=== PATIENT | male | born 1970 | race American Indian/Alaskan Native ===

== ENCOUNTER 2020-03-31 07:20 | Emergency (ER) | payer OTHER ==
[2020-03-31] MEDS ORDERED: Cyclobenzaprine 10 MG Tab PO ONE (07:31)
--- NOTE | 2020-03-31 07:47 | EDM.PDOC ---
"ED HPI GENERAL MEDICAL PROBLEM - General Chief Complaint: Back Pain or Injury Stated Complaint: BACK SPASMS, STIFF Time Seen by Provider: 03/31/20 07:39 Source of Information: Reports: Patient, RN, RN Notes Reviewed History Limitations: Reports: No Limitations - History of Present Illness INITIAL COMMENTS - FREE TEXT/NARRATIVE: Patient presents to the ED via personal vehicle with complaints of acute lower back pain. The patient states the pain is localized to the lower, midline back and does not radiate. He describes the pain as spasming in nature; it limits his ability to change positions, lay down, or stand up straight. He denies recent or past injury to the area or recent strenuous activity. The patient reports he has experienced similar pain about five years ago which spontaneously improved. He has not taken any medications for this pain but applied a lower back brace he had at home. He denies loss of sensory function, urinary incontinence, inability to fully void, stool incontinence, or difficulty passing stool. He denies tobacco, alcohol, or recreational drug use. Lower Back Pain Score (Numeric/FACES): 9 - Related Data Allergies Allergy/AdvReac Type Severity Reaction Status Date / Time No Known Allergies Allergy Verified 03/31/20 07:25 Home Meds: Home Meds . [No Known Home Meds] 05/01/14 [History] Past Medical History - Past Health History Medical/Surgical History: Denies Medical/Surgical History Musculoskeletal History: Reports: Back Pain, Chronic Social & Family History - Tobacco Use Tobacco Use Status *Q: Never Tobacco User Second Hand Smoke Exposure: No - Caffeine Use Caffeine Use: Reports: Coffee - Recreational Drug Use Recreational Drug Use: No ED ROS GENERAL - Review of Systems Review Of Systems: Comprehensive ROS is negative, except as noted in HPI. ED EXAM,LOWER BACK PAIN/INJURY - Physical Exam Exam: See Below Exam Limited By: No Limitations General Appearance: Alert, WD/WN, Mild Distress GI/Abdominal: Normal Bowel Sounds, Soft, Non-Tender, No Distention, No Mass, Pelvis Stable (Male) Exam: Deferred Rectal (Males) Exam: Deferred Back Exam: Decreased Range of Motion, Muscle Spasm (To lower back), Vertebral Tenderness (To lower back). No: CVA Tenderness (L), CVA Tenderness (R), Paraspinal Tenderness Extremities: Normal Inspection, Normal Range of Motion, Non-Tender, No Pedal Edema, Normal Capillary Refill. No: Leg Pain, Mottled, Pallor Neurological: Alert, Normal Mood/Affect, Normal Dorsiflexion, CN II-XII Intact, Normal Plantar Flexion, Normal Reflexes, Oriented x 3. No: Normal Gait (Walking with a hunched gait, due to inability to stand fully erect ) Psychiatric: Normal Affect, Normal Mood Skin Exam: Warm, Dry, Normal Color. No: Ecchymosis, Erythema, Mottled, Pallor, Petechiae Course - Vital Signs Last Recorded V/S: Last Vital Signs Temp 99.1 F 03/31/20 07:27 Pulse 84 03/31/20 07:27 Resp 16 03/31/20 07:27 BP 124/88 03/31/20 07:27 Pulse Ox 96 03/31/20 07:27 - Orders/Labs/Meds Meds: Medications Discontinued Medications Generic Name Dose Route Start Last Admin Trade Name Freq PRN Reason Stop Dose Admin Cyclobenzaprine HCl 10 mg 03/31/20 07:31 03/31/20 07:39 Flexeril PO 03/31/20 07:32 10 mg ONETIME ONE Administration Ketorolac Tromethamine 30 mg 03/31/20 08:25 03/31/20 08:31 Toradol IM 03/31/20 08:26 30 mg ONETIME ONE Administration - Radiology Interpretation Free Text/Narrative:: [facility] Final Radiology Report Call: [phone] assistance Online chat: [email or web address] Name: WEN PULLIAM II Age: 49Years M Date: 03/31/2020 SSN: -- : [id number] Study: CR LUMBAR SPINE 2 OR 3V Requesting Physician: Zuleyma Alva Images: 2 Addl Studies: Provided Clinical History: Acute back spasm Contrast: Contrast Medium: Contrast Amount: Contrast Method: Page 1 of 2 PROCEDURE INFORMATION: Exam: XR Lumbosacral Spine, 2 or 3 Views Exam date and time: 03/31/2020 7:47 AM Age: 49 years old Clinical indication: Other: Acute back spasm TECHNIQUE: Imaging protocol: XR of the lumbosacral spine, 2 or 3 views. COMPARISON: No relevant prior studies available. FINDINGS: Bones/joints: Mild right sided L4-L5 degenerative disc narrowing. Clustered calcifications right lateral to the L3 vertebral body in aggregate measuring 2.5 x 1.5 cm, individual calcifications measuring as large as 3.5 mm. These are not identified on the lateral image suggesting these are far anterior, or even external to the patient. Soft tissues: Unremarkable. Gastrointestinal tract: Borderline prominence of upper abdominal small bowel loops with nondifferential air-fluid levels. IMPRESSION: 1. Mild degenerative changes as above. 2. No acute lumbar spinal bony abnormality identified. 3. Possible mild enteritis. Clinical correlation is recommended. 4. Possible gallstones. Clinical correlation with the patient's specific symptomatology is recommended. Nonemergent gallbladder may be helpful if indicated. Thank you for allowing us to participate in the care of your patient. WEN PULLIAM II | Final Radiology Report CONFIDENTIALITY STATEMENT This report is intended only for use by the referring physician, and only in accordance with law. If you received this in error, call [phone]. Page 2 of 2 Dictated and Authenticated by: David Davalos - Re-Assessments/Exams Free Text/Narrative Re-Assessment/Exam: 03/31/20 Patient verbalized improvement in acute pain with administration of ketorolac and Flexeril. Xray of the lumbar reveals mild degenerative disk narrowing in L4-L5. Mild enteritis and gallstones noted on x-ray discussed with patient - he again confirms no changes to his bowel pattern and no abdominal pain. Patient scheduled with PT tomorrow at 11am. Discussed supportive cares for acute spasm with patient. He verbalized understanding and agreement with the plan of care. Departure - Departure Time of Disposition: 08:57 Disposition: Home, Self-Care 01 Condition: Good Clinical Impression: Muscle spasm of back Acute low back pain Qualifiers: Back pain laterality: midline Sciatica presence: without sciatica Qualified Code(s): M54.5 - Low back pain - Discharge Information *PRESCRIPTION DRUG MONITORING PROGRAM REVIEWED*: Not Applicable *COPY OF PRESCRIPTION DRUG MONITORING REPORT IN PATIENT JOSSIE: Not Applicable Forms: ED Department Discharge Additional Instructions: Rx: Ketorolac Rx: Cyclobenzaprine 1.) Scheduled with PT tomorrow (04/01/2020) at 11am. 2.) Apply moist heat to lower back for 20 minutes every hour as pain persists. You may alternate ice to the lower back for 20 minutes every hours as pain persists, as well. 3.) Drink plenty of fluids to stay hydrated. 4.) In addition to the prescribed medications you may take acetaminophen (Tylenol) 650mg every six hours for pain. DO NOT take any ibuprofen, aspirin, or additional NSAID medication when you are taking Ketorolac. Sepsis Event Note (ED) - Evaluation Sepsis Screening Result: No Definite Risk - Focused Exam Vital Signs: Vital Signs Temp Pulse Resp BP Pulse Ox 03/31/20 07:27 99.1 F 84 16 124/88 96"
--- NOTE | 2020-03-31 08:18 | CR ---
PROCEDURE INFORMATION: Exam: XR Lumbosacral Spine, 2 or 3 Views Exam date and time: 03/31/2020 7:47 AM Age: 49 years old Clinical indication: Other: Acute back spasm TECHNIQUE: Imaging protocol: XR of the lumbosacral spine, 2 or 3 views. COMPARISON: No relevant prior studies available. FINDINGS: Bones/joints: Mild right sided L4-L5 degenerative disc narrowing. Clustered calcifications right lateral to the L3 vertebral body in aggregate measuring 2.5 x 1.5 cm, individual calcifications measuring as large as 3.5 mm. These are not identified on the lateral image suggesting these are far anterior, or even external to the patient. Soft tissues: Unremarkable. Gastrointestinal tract: Borderline prominence of upper abdominal small bowel loops with nondifferential air-fluid levels. IMPRESSION: 1. Mild degenerative changes as above. 2. No acute lumbar spinal bony abnormality identified. 3. Possible mild enteritis. Clinical correlation is recommended. 4. Possible gallstones. Clinical correlation with the patient's specific symptomatology is recommended. Nonemergent gallbladder may be helpful if indicated.
[2020-03-31] MEDS ORDERED: Ketorolac 30 MG/ML SDV IM ONE (08:25)
== END 2020-03-31 09:14 | disposition home or self-care (01) ==
LOC: DL.ED 07:20
DX: M62.830 Muscle spasm of back (principal)
CPT/HCPCS: 72100; 96372; 99283-25; A9270-GY; J1885

== ENCOUNTER 2021-10-14 00:50 | Emergency (ER) | payer OTHER ==
[2021-10-14] MEDS ORDERED: Bacitracin Oint 1 GM U/D Packet TOP ONE (01:40)
[2021-10-14] MEDS ORDERED: Lidocaine 1% 30 ML SDV INJECT ONE (01:40)
[2021-10-14] MEDS ORDERED: Ibuprofen 600 MG Tab PO ONE (02:05)
[2021-10-14] MEDS ORDERED: Cephalexin 500 MG Cap PO ONE (02:05)
== END 2021-10-14 02:18 | disposition home or self-care (01) ==
LOC: DL.ED 00:50
DX: S61.211A Laceration without foreign body of left index finger without damage to nail, initial encounter (principal); W26.0XXA Contact with knife, initial encounter
CPT/HCPCS: 12001; 99282; A9270